=== PATIENT | female | born 1990 | race American Indian/Alaskan Native ===

== ENCOUNTER 2019-12-08 20:51 | Emergency (ER) | payer SELFPAY ==
--- NOTE | 2019-12-08 21:00 | Emergency Department Report ---
ED Psych HPI - General Chief Complaint: Altered Mental Status Stated Complaint: MH Time Seen by Provider: 12/08/19 20:52 Source: EMS Mode of arrival: Stretcher Limitations: Altered Mental Status - History of Present Illness Initial Comments: Patient is a 29-year-old female that presents emergency room with acute psychosis. Patient was brought in by EMS and the police. Patient was found wandering [place] side [place] and talking to herself. Per EMS the patient has a history of bipolar and schizophrenia and is off of her meds. Patient is not answering questions at this time. Patient is acutely agitated and is screaming and kicking while in the bed. MD Complaint: altered mental status History of same: Yes Quality: constant Improves With: none Worsens With: none Context: not taking psychiatric Associated Symptoms: denies: confusion, headache, shortness of breath, nausea, vomiting, syncope, insomnia Treatments Prior to Arrival: placed on mental he - Related Data Allergies Allergy/AdvReac Type Severity Reaction Status Date / Time Unable to Assess Allergy Unverified 12/08/19 21:16 ED Review of Systems ROS: Stated complaint: MH Other details as noted in HPI Comment: Unobtainable due to pts medical conditions ED Past Medical Hx - Past Medical History Previous Medical History?: Yes Hx Psychiatric Treatment: Yes - Surgical History Past Surgical History?: No - Family History Family history: no significant - Social History Smoking Status: Unknown if ever smoked Substance Use Type: None ED Physical Exam - General Limitations: No Limitations General appearance: alert, anxious - Head Head exam: Present: atraumatic, normocephalic - Eye Eye exam: Present: normal appearance, PERRL Pupils: Present: normal accommodation - ENT ENT exam: Present: mucous membranes moist - Neck Neck exam: Present: normal inspection - Respiratory Respiratory exam: Present: normal lung sounds bilaterally. Absent: respiratory distress, wheezes, rales - Cardiovascular Cardiovascular Exam: Present: regular rate, normal rhythm. Absent: systolic murmur, diastolic murmur, rubs, gallop - GI/Abdominal GI/Abdominal exam: Present: soft, normal bowel sounds - Extremities Exam Extremities exam: Present: normal inspection - Back Exam Back exam: Present: normal inspection - Neurological Exam Neurological exam: Present: alert, altered - Expanded Psychiatric Exam Expanded Focused psych exam: Present: pressured speech, internal stimuli, psychomotor a gitation, restlessness - Skin Skin exam: Present: warm, dry, intact, normal color. Absent: rash ED Course Vital Signs 12/08/19 12/08/19 12/09/19 21:11 22:06 08:00 Temperature 98.1 F 98.0 F Pulse Rate 75 76 Respiratory 18 18 16 Rate Blood Pressure 135/70 133/86 [Left] O2 Sat by Pulse 100 98 Oximetry 12/09/19 12/10/19 12/10/19 19:35 01:30 07:00 Temperature 98.8 F 98.7 F 98.2 F Pulse Rate 109 H 98 H Respiratory 109 H 17 16 Rate Blood Pressure 113/72 114/79 114/82 [Left] O2 Sat by Pulse 99 98 99 Oximetry 12/10/19 12/11/19 20:11 01:08 Temperature 99.0 F 98.8 F Pulse Rate 101 H 92 H Respiratory 18 18 Rate Blood Pressure 114/62 144/66 [Left] O2 Sat by Pulse 98 98 Oximetry - Reevaluation(s) Reevaluation #1: Initial evaluation done. Patient acutely agitated. Patient will be given Geodon, Ativan and Benadryl. 12/08/19 20:51 Reevaluation #2: Patient resting. Patient acting more appropriate. 12/08/19 22:21 Reevaluation #3: Patient resting in bed. Patient is medically cleared. I discussed all results and clinical findings with patient. I discussed plan of care with patient. Patient agrees with plan of care. Patient will be seen by our psychiatry and mental health team. Patient's final disposition will come from our psychiatry mental health team. 12/09/19 05:50 ED Medical Decision Making - Lab Data Result diagrams: 12/09/19 00:02 12/09/19 00:02 - Medical Decision Making Patient is a 29-year-old female that presents emergency room for acute psychosis. Patient was found to be agitated and hyperverbal and uncontrolled behaviors. Patient was given Geodon, Ativan and Benadryl and responded well. Patient had labs done. Patient's labs are essentially unremarkable. Patient placed on a 1013 for her acute psychosis. Patient also placed on a ER hold. Patient's medically cleared and her final disposition will come from our mental health and psychiatry team. - Differential Diagnosis Acute psychosis agitation and combative behavior. Critical care attestation.: If time is entered above; I have spent that time in minutes in the direct care of this critically ill patient, excluding procedure time. ED Disposition Clinical Impression: Acute psychosis Disposition: [id number] PSY HOSP/PSY UNIT Is pt being admited?: No Does the pt Need Aspirin: No Condition: Stable Referrals: PRIMARY CARE, [Primary Care Provider] - 3-5 Days Time of Disposition: 05:57
[2019-12-08] MEDS ORDERED: diphenhydrAMINE 50 MG/ML VIAL IM ONE (21:10)
[2019-12-08] MEDS ORDERED: LORazepam 2 MG/ML VIAL IM ONE (21:10)
[2019-12-08] MEDS ORDERED: ZIPRASIDONE MESYLATE 20 MG VIAL IM ONE (21:51)
[2019-12-09 02:10] LABS: Basophils % (Auto) 0.4 % (0.0-1.8); Eosinophils % (Auto) 0.3 % (0.0-4.3); Hematocrit 40.1 % (30.3-42.9); Hemoglobin 13.4 gm/dl (10.1-14.3); Lymphocytes # (Auto) 2.5 K/mm3 (1.2-5.4); Lymphocytes % (Auto) 25.1 % (13.4-35.0); Mean Corpuscular HGB Conc 34 % (30-34); Mean Corpuscular Volume 87 fl (79-97); Monocytes # (Auto) 0.6 K/mm3 (0.0-0.8); Monocytes % (Auto) 6.1 % (0.0-7.3); Platelet Count 370 K/mm3 (140-440); Red Blood Count 4.59 M/mm3 (3.65-5.03); Red Cell Distribution Width 14.7 % (13.2-15.2)
[2019-12-09 02:25] LABS: Alanine Aminotransferase 12 units/L (7-56); Albumin 4.2 g/dL (3.9-5); BUN/Creatinine Ratio 20; Blood Urea Nitrogen 16 mg/dL (7-17); Calcium 9.5 mg/dL (8.4-10.2); Hemolysis Index 0
[2019-12-09 04:04] LABS: Bilirubin,Urine NEG (Negative); Blood,Urine NEG (Negative); Color,Urine Yellow (Yellow); Mucus,Urine FEW /HPF; RBC,Urine < 1.0 /HPF (0.0-6.0)
[2019-12-09 04:25] LABS: Amphetamine Screen,Urine PRESUMPTIVE NEGATIVE; Benzodiazepines Screen,Urine PRESUMPTIVE NEGATIVE; Cocaine Screen,Urine PRESUMPTIVE NEGATIVE; Methadone Screen,Urine PRESUMPTIVE NEGATIVE; Opiate Screen,Urine PRESUMPTIVE NEGATIVE
[2019-12-09 05:04] LABS: Cannabinoid Screen,Urine PRESUMPTIVE POSITIVE
[2019-12-09] MEDS ORDERED: ZIPRASIDONE MESYLATE 20 MG VIAL IM ONE ×2 (15:57→16:01)
--- NOTE | 2019-12-10 11:21 | Consultation ---
History of Present Illness - Reason for Consult Consult date: 12/10/19 Reason for consult: psychosis - History of Present Psychiatric Illness Mikaela Michele is a 29y/o female patient who was brought in by police for walking on side of the road and talking to herself, according to medical record. During my interview with the patient this morning, she is lying down. She sits up when I walk in the room. She is a/o x 2. When asking who was the hospice/home health aide to assess her orientation, the patient replies, "Me...and you." The patient starts looking around the room and at the ceiling. She says she's looking at "the faces." She says, "I pray and ask the Lord don't scare me." The patient was unable to tell my why she was brought to the hospital. She describes her mood as, "down right now." She denies SI/HI. She also denies any illicit drug use, alcohol or nicotine, despite being positive for THC. The patient begins crying saying, "they took my children, they took my . They took my life." She was unable to tell me who "they" were. The patient started rambling. She denies any past psych history or ever being on any psychiatric medication. PAST PSYCHIATRIC HISTORY Diagnoses: Denies Suicide attempts or Self-harm behavior: Denies Prior psychiatric hospitalizations: Denies Substance Abuse history: Denies Previous psychiatric medications tried: Denies Outpatient treatment: Denies SOCIAL HISTORY Marital Status: Living Arrangements: Alone Employment Status: Ememployed Access to guns/weapons: Denies Education: High school History of abuse: Denies Legal History: Denies ROS Constitutional: Negative for weight loss EMT: Negative for stridor Respiratory: Negative for cough or hemoptysis All other systems reviewed and are negative MENTAL STATUS EXAMINATION General Appearance: Dressed appropriately. Behavior: Odd Mood: "Down" Affect: Congruent with stated mood Speech: Normal tone and pace Thought Process: Responding to internal stimuli Suicidal Ideation: Denies Homicidal Ideation: Denies Hallucinations: Visual Delusions: None elicited Insight and Judgment: Limited Memory/Cognition: Limited Assessment and Plan Schizoaffective Disorder RECOMMENDATIONS Assess CIWA MEDICATIONS Seroquel 25mg po BID Depakote DR 125mg po BID Trazodone 50mg po qhs Geodon 20mg IM q6h prn agitation Risks, benefits and alternatives of medications discussed with the patient, questions answered and consent obtained from patient. PSYCHOTHERAPY: Supportive psychotherapy provided MEDICAL: Per primary team DELIRIUM PRECAUTIONS: Please re-orient patient frequently, keep lights on during the day, and minimize benzodiazepines and opiates as these medications could worsen patient's confusion. 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 The patient may transfer to an acute psychiatric facility once medically clear. FOLLOW-UP: Will follow until transferred or the patient improves enough for discharge Thank you for the consult. Please contact with any questions and/or concerns. Medications and Allergies Allergies Allergy/AdvReac Type Severity Reaction Status Date / Time Unable to Assess Allergy Unverified 12/08/19 21:16 Mental Status Exam - Vital signs Last Vital Signs Temp 98.2 F 12/10/19 07:00 Pulse 98 H 12/10/19 01:30 Resp 16 12/10/19 07:00 BP 114/82 12/10/19 07:00 Pulse Ox 99 12/10/19 07:00 Results Result Diagrams: 12/09/19 00:02 12/09/19 00:02 All other labs normal.
[2019-12-10] MEDS ORDERED: ZIPRASIDONE MESYLATE 20 MG VIAL IM PRN (12:00)
[2019-12-10] MEDS: DIVALPROEX DR 125 MG TAB PO SCH ×2 (15:25→22:02)
[2019-12-10] MEDS: QUEtiapine 25 MG TAB PO SCH ×2 (15:25→22:02)
[2019-12-10] MEDS ORDERED: traZODone 50 MG TAB PO SCH (22:00)
[2019-12-11 01:09] VITALS: BP 144/66
== END 2019-12-11 03:19 ==
LOC: ED 20:51 → EEVIPCON 20:51 → ED 12-11 03:19
DX: F23 Brief psychotic disorder (principal)
CPT/HCPCS: 36415; 80053; 80307; 81001; 84703; 85025; 96372; 99285; J3486; 80320; G0480